=== PATIENT | female | born 1950 | race Caucasian/White ===

== ENCOUNTER 2018-02-27 10:05 | Observation (INO) ==
[~2018-02-27 10:05] MED LIST: Gelatin Size 100 Topical Foam ONE; Thrombin Topical Soln 5,000 UNIT Vial TOPICAL ONE; ceFAZolin 1 GM Premix Inj 2 GM/100 ML PIGGYBACK IV.SIG ONE
[2018-02-27] MEDS ORDERED: Chlorhexidine Gluconate 2% 1 Pack (2 Cloths) TOPICAL ONE (11:00)
[2018-02-27] MEDS ORDERED: Metoprolol Tartrate 25 MG Tablet PO ONE (11:00)
[2018-02-27] MEDS ORDERED: Sodium Chlor 0.9% Inj 500 ML IV.CONT ONE (11:00)
[2018-02-27] MEDS ORDERED: Chlorhexidine Gluconate 2% 1 Pack (2 Cloths) TOPICAL PRN (11:00)
[2018-02-27] MEDS ORDERED: Vancomycin Inj 1,000 MG in Sodium Chlor 0.9% Inj 250 ML IV.SIG SCH (12:00)
[2018-02-27] MEDS ORDERED: fentaNYL Citrate Inj 250 MCG/5 ML Ampul ONE (12:10)
[2018-02-27] MEDS ORDERED: Artificial Tears Opth Oint 3.5 GM Tube ONE (12:11)
[2018-02-27] MEDS ORDERED: Propofol Inj 500 MG/50 ML Vial ONE (14:23)
[2018-02-27] MEDS ORDERED: Bisacodyl 10 MG Supp RECTAL PRN (17:24)
--- NOTE | 2018-02-27 17:33 | P.OP ---
Preoperative Diagnosis: Cervical Disk Protusions with Spinal Stenosis Postoperative Diagnosis: Cervical Disk Protusions with Spinal Stenosis Date of procedure: 02/27/18 Procedure: C4-5. C5-6, C6-7 anterior cervical discectomy, interbody arthodhesis using PEEK cage filled with autologous bone graft, Simplicity plate and screws. Anesthesia: AMBERA Surgeon: Baldomero Moncada MD Electronic Scale Assembler And Tester: Jerrell Torrez Pathology: none sent Operation and Findings: INDICATIONS FOR THE PROCEDURE Ms Askew is a 67 year-old female who presented with intractable neck pain and clinical evidence of upper extremity poliradiculopathy. She was found to have multiple disk protusions causing significant spinal stenosis. She has failed maximum nonsurgical management including multiple modalities of treatment. A surgical decompression and arthrodhesis were indicated. The [id number] details of the procedure, indications, alternatives, risks and potential complications were fully discussed with the patient. The patient fully understood. All The questions were answered. No guarantees were given. The patient voiced requesting the procedure and provided informed consents. The patient was offered the alternative of delaying the procedure and continuing with nonsurgical management. DETAILS OF THE SURGICAL PROCEDURE After the induction of general anesthesia, endotracheal intubation was performed. A Padilla catheter, bilateral JUAN hose, and sequential compression devices were placed and kept throughout the procedure. Placement of electrodes for neurophysiological monitoring of the somatosensorial evoked potentials. motor evoked potentials, and EMG as well as laryngeal nerve monitoring was achieved. The patient was positioned supine on a Travis table with the head over a gel doughnut. All pressure points were carefully padded with eggcrate mattress. The eyes were tapped shut after ointment was applied by the anesthesiologist to prevent corneal abrasion. A Mohsen hugger was placed over the exposed lower body to maintain control of the core body temperature. The electrophysiological team placed the needles and electrodes in their proper location and baseline SSEP's and motor evoked potentials were registered prior and after positioning and endotracheal intubation. The anterior cervical region was prepped and draped in the usual sterile fashion. A localizing x-ray was performed with a C-arm. The surgical procedure was performed in several steps as follow: SURGICAL APPROACH A skin incision was made along the medial cervical crease with a #10 blade. The dissection was carried out through the platysma exposing the sternocleidomastoid muscle. The cervical spine was approached following the fascial layers of the neck just medial to the anterior border of the sternocleidomastoid and carotid sheath by a combination of sharp and dull dissection. The omohyoid muscle was identified and carefully dissected laterally and the deep cervical fascia was carefully opened. The longus colli muscles were retracted to each side of the midline. A marker was placed at the disc space C5-6 and a cross-table lateral x-ray performed with a C-arm. SURGICAL DECOMPRESSION In order to decompress the anterior surface of the spinal cord it was necessary to preform a microsurgical resection of the disk at C4-5. C5-6, C6-7. At this point in the procedure the operating microscope was draped in the usual sterile fashion and brought to the field. The rest of the surgical procedure was performed using microdissection technique with the exception of the closure. Under the operative microscopic, a self-retaining retractor was placed underneath the longus colli muscle. Anterior osteophite spurs werte carefully removed with the Leksell. The annulus at C4-5. C5-6, C6-7 were incised with a # 15 blade and microdiscectomy was then carefully carried out using angled curets and pituitary forceps. There were osteophitic/disk herniation complexes causing mass effect and compression of the dural sac and nerve roots. The posterior longitudinal ligament was then elevated with an angled curet and incised with a 15 bladed knife. A careful resection of the posterior longitudinal ligament was carried out using a thin footplate 2 mm Kerrison. A nerve hook was used to assess the epidural space behind the vertebral bodies C5, C6, and C7 in search for residual disk fragments. The margins of the posterior endplates at C4-5, C5- 6, and C6-7 were carefully drilled and undercut with a TPS drill under high magnification. The decompression was then carried out laterally, and a bilateral foraminotomy was performed with a 2mm thin foot Kerrison. Then the vertebral bodies above and below the disk space were undercut using a 2 mm thin foot Kerrison. The epidural space was the systematically assessed with a nerve hook in search for disk fragments. An excellent decompression was achieved in both, the dural sac and bilateral exiting nerve roots. The incision was then irrigated with a large amount of antibiotic solution INTERBODY ARTHRODHESIS In order to avoid collapse of the disk space which would result in bilateral foraminal stenosis, and to increase the chances of a successful fusion, it was necessary to place an interbody cage filled with autologous bone. At this point of the procedure, the superior and inferior endplates were then evenly decorticated with a TPS drill. The use of a drill in combination with a curette allowed me to systematically remove the cartilaginous endplates, exposing healthy bone for the interbody arthrodesis. Fourteen millimeters distraction pins were then placed at the vertebral bodies adjacent to the disk space, and gentle distraction was applied. The size of the interbody cage was then assessed using different size spacers, and a rasp was used to ensure no residual cartilage. A PEEK cage of the appropriate size was selected, and the interbody arthrodesis was then preformed by carefully impacting a PEEK cage filled with autologous bone graft to the disc spaces C4-5 and C5-6. An excellent position of the cage was achieved. This was was confirmed anatomically by feeling the space posterior to the implant and distance to the anterior surface of the dural sac. Radiological confirmation of the position was performed with a cross lateral xray performed with the C-arm. INTERNAL INSTRUMENTAL FIXATION Once that the interbody device was in an appropriate position, it was necessary to stabilize the spine with anterior instrumentation. Anterior instrumentation has demonstrated to increase the rate of fusion, acelerate the patient's recovery, and decrease the rate of failed interbody grafts. At this point of the procedure, the distance between the vertebral bodies was carefully measures, and a Simplicity plate was brought to the field and presented in front of the vertebral bodies C4 C5, C6, and C7. Plating Technician holes were then drilled using the TPS drill, and the plate was then secured to the spine using self-drilling, self-tapping screws. Initially, the inferior right screw was inserted, followed by placement of the contralateral upper screw. The remanding screws were sequentially placed in a contra-lateral fashion. A proper purchase was achieved with all screws and the position of the cage, plate and screws, and alignment of the spine was assessed anatomically by direct visualization, and radiologically by performing a cross lateral xray of the cervical spine with the C-arm. CLOSURE The incision was irrigated with several liters of antibiotic solution. Hemostasis was achieved with a bipolar. The screws were locked to prevent backing out. A 7 mm Travis-Tracy drain was left in the prevertebral space and externalized through a separate stab incision. The incision was then closed in layers. 3-0 Vicryl with interrupted sutures was used to close the platysma and subcutaneous tissue. The skin was closed with 4-0 running subcuticular Vicryl and glue was applied to the skin. The drain was secured with a 3-0 nylon. At the end of the procedure the sponge, needle and instrument counts were all correct. The estimated blood loss was less than 80 cc. No blood transfusion was given. No intraoperative complications occurred. The patient received prophylactic antibiotics. The patient was then extubated and transferred to the recovery room in stable condition.
[2018-02-27] MEDS: Sod Chloride 0.9% Inj 1,000 ML IV.CONT SCH (17:55)
[2018-02-27] MEDS ORDERED: Phenol 1.4% 180 ML Spray Bottle OROPHARYNG PRN (17:58)
[2018-02-27] MEDS ORDERED: fentaNYL Citrate Inj 100 MCG/2 ML Ampul ONE (17:58)
[2018-02-27] MEDS ORDERED: *morphine SULFATE 4 MG/ML PERIprocedure ONLY ONE ×2 (18:02→18:22)
[2018-02-27] MEDS ORDERED: HYDROmorphone PF Inj 0.5 MG/0.5 ML Syringe ONE (18:46)
--- NOTE | 2018-02-27 18:59 | XR ---
EXAM DATE: 02/27/2018 6:17 PM EST AGE/SEX: 67 years / Female INDICATIONS: C4-7 fusion. CLINICAL DATA: This is the patient's initial encounter. Patient reports that signs and symptoms have been present for 1 day and indicates a pain score of Nonresponsive. MEDICAL/SURGICAL HISTORY: Non-responsive. Non-responsive. COMPARISON: No prior exams available for comparison. FINDINGS: There is an anterior cervical fusion plate at the C4-C7 levels with intervening surgical material at the C4-C5, C5-C6 and C6-C7 disc levels. CONCLUSION: Good postsurgical appearance. Electronically signed by: Juan Ramon Knutson MD Board Certified Radiologist 02/27/2018 6:58 PM EST
[2018-02-27] MEDS: Senna/Docusate Sodium 8.6/50 MG Tablet PO SCH (20:01)
[2018-02-27] MEDS: Metoprolol Tartrate 50 MG Tablet PO SCH (20:02)
[2018-02-27] MEDS: Gabapentin 300 MG Capsule PO SCH (20:02)
[2018-02-27] MEDS: Morphine Sulfate Inj 2 MG/ML Vial IV.PUSH PRN ×2 (21:32→23:50)
[2018-02-27] MEDS: ceFAZolin 2 GM Premix Inj 2 GM/50 ML PIGGYBACK IV.SIG SCH (21:36)
[2018-02-28] MEDS: Sod Chloride 0.9% Inj 1,000 ML IV.CONT SCH ×2 (01:31→04:21)
[2018-02-28 04:56] LABS: Bilirubin,Urine Negative (Negative); Clarity,Urine Clear (Clear); Color,Urine Yellow (Yellw/Straw); Glucose,Urine (UA) Negative (Negative); Leukocyte Esterase,Urine Negative (Negative); Nitrite,Urine Negative (Negative); Specific Gravity,Urine 1.013 (1.002-1.035)
[2018-02-28] MEDS: Gabapentin 300 MG Capsule PO SCH (06:01)
[2018-02-28] MEDS: ceFAZolin 2 GM Premix Inj 2 GM/50 ML PIGGYBACK IV.SIG SCH (06:01)
[2018-02-28 06:22] VITALS: RESP 20
[2018-02-28] MEDS: Metoprolol Tartrate 50 MG Tablet PO SCH (08:45)
[2018-02-28] MEDS: Senna/Docusate Sodium 8.6/50 MG Tablet PO SCH (08:45)
[2018-02-28] MEDS: Sod Chloride 0.9% Inj 1,000 ML IV.SIG SCH ×2 (08:56→10:13)
[2018-02-28] MEDS ORDERED: [UNRECOGNIZED DRUG - OTHER] PO SCH (09:00)
[2018-02-28] MEDS ORDERED: APPLE CIDER VINEGAR PO SCH (09:00)
[2018-02-28] MEDS ORDERED: Triamterene/HCTZ 37.5 MG/25 MG Tablet PO SCH (09:00)
[2018-02-28] MEDS ORDERED: Pantoprazole Sodium 20 MG DR Tablet PO SCH (09:00)
[2018-02-28] MEDS ORDERED: Loratadine 10 MG Tablet PO SCH (09:00)
[2018-02-28] MEDS ORDERED: amLODIPine 10 MG Tablet PO SCH (09:00)
--- NOTE | 2018-02-28 10:21 | P.DS ---
Date of admission: 02/27/18 18:04 Primary care physician: Tremayne Elizalde DO Brief History from admission: Ms Askew is a 67 year-old female who presented with intractable neck pain and clinical evidence of upper extremity poliradiculopathy. She was found to have multiple disk protusions causing significant spinal stenosis. She has failed maximum nonsurgical management including multiple modalities of treatment. A surgical decompression and arthrodhesis were indicated. DS: Medications - Discharge Medications Prescriptions: hydrocodone-acetaminophen 1 tab PO Q4-6H PRN 7 Days #27 tab PRN Reason: Pain Scale 1 To 5 DS: Summary Hospital Course: Ms. Askew underwent a C4-5. C5-6, C6-7 anterior cervical discectomy, interbody arthodhesis using PEEK cage filled with autologous bone graft, Simplicity plate and screws for Cervical Disk Protusions with Spinal Stenosis on 02/24/18. Her surgery went well without complications. She will be discharged home in stable conditions. - Time Spent with Patient Total time spent providing and/or coordinating discharge services: Less than 30 minutes - Quality: VTE Deep Vein Thrombosis/Pulmonary Embolism Present on Admission: No Exam Vital signs: Vital Signs 02/27/18 11:30 02/27/18 17:45 02/27/18 18:00 Temperature 98.6 F 98.5 F Pulse Rate 68 103 H 101 H Respiratory Rate 16 15 16 Blood Pressure 125/59 L 146/67 H 147/68 H Pulse Oximetry 95 96 96 02/27/18 18:15 02/27/18 18:30 02/27/18 18:43 Temperature Pulse Rate 100 H 99 H Respiratory Rate 16 17 Blood Pressure 150/69 H 150/61 H Pulse Oximetry 95 95 95 02/27/18 18:45 02/27/18 20:00 02/27/18 20:30 Temperature 98.4 F 97.3 F L Pulse Rate 104 H 105 H Respiratory Rate 16 16 Blood Pressure 153/68 H 126/82 Pulse Oximetry 96 94 L 96 02/27/18 22:11 02/27/18 23:54 02/28/18 00:00 Temperature 97.0 F L Pulse Rate 93 H Respiratory Rate 18 18 18 Blood Pressure 133/61 Pulse Oximetry 93 L 02/28/18 02:28 02/28/18 04:00 Temperature 97.5 F L Pulse Rate 83 Respiratory Rate 19 20 Blood Pressure 135/62 Pulse Oximetry 93 L Intake & Output 02/27/18 02/28/18 02/28/18 18:59 06:59 18:59 Intake Total 1999 1950 / 1950 Output Total 500 / 500 2540 / 2540 Balance 1500 / 1500 -590 / -590 Weight 105.9 kg 110.3 kg Intake: IV 1450 / 1450 LR 1000 mL Inj 1,000 ML @ 30 0 / 0 mls/hr IV.CONT .Q24H ONE Rx#: [id number] NS Inj 1,000 ML @ 100 mls/hr IV 1000 / 1000 .CONT .Q10H JANNETTE Rx#:[id number] Vancomycin Inj 1,000 MG In NS 250 / 250 Inj 250 ML @ 250 mls/hr IV.SIG CARBON 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 C5-6, C6-7 anterior cervical discectomy, interbody arthodhesis using PEEK cage filled with autologous bone graft, Simplicity plate and screws Labs on day of discharge: Labs from last 24 hours 02/28/18 04:30 Urine Color Yellow Urine Clarity Clear Urine pH 5.0 Ur Specific [place] 1.013 Urine Protein Negative Urine Glucose (UA) Negative Urine Ketones Negative Urine Occult Blood Negative Urine Nitrate Negative Urine Bilirubin Negative Urine Urobilinogen Less than 2 Ur Leukocyte Esterase Negative Urine RBC 1 Urine WBC Less than 1 Micro UA Comment Culture not ind Ur Microscopic Review Not Reportable Urine Culture Comments Culture not ind - Impressions ITS Impressions Cervical Spine X-Ray 02/27/18 00:00 CONCLUSION: Good postsurgical appearance. Discharge Plan - Discharge Disposition Patient Disposition: 01 Discharge Home - Discharge Condition Condition: Stable - Discharge Order Discharge Orders: Discharge Order (Routine); Ordered 02/28/18 Ordered By: Marilyn Tinoco - Physicians Team Primary Care Provider: Tremayne Elizalde Attending Provider: Baldomero Moncada - Rxs /Orders / Referrals /Forms Prescriptions: New hydrocodone-acetaminophen 10-325 mg Tablet 1 tab PO Q4-6H PRN (Reason: Pain Scale 1 To 5) 7 Days Qty: 27 RF: 0 Continue amlodipine 10 mg Tablet 10 mg PO DAILY apple cider vinegar 500 mg Tablet 1 tab PO DAILY Ca Ejz-[id number]-M-Jttm-uoeeo-zef bor [TheraCal D2000] 250 mg calcium -500 unit Tablet 1 tab PO DAILY cranberry 500 mg Capsule 500 mg PO DAILY cyanocobalamin (vitamin B-12) [Vitamin B-12] 2,500 mcg Tablet, Sublingual 2,500 mcg SUBLINGUAL DAILY loratadine 10 mg Tablet 10 mg PO DAILY metoprolol tartrate 50 mg Tablet 1 tab PO BID lvfteglxjmwg-rfji-sdlbi acid [Centrum] 18-400 mg-mcg Tablet 1 tab PO DAILY omeprazole magnesium [Prilosec OTC] 20 mg Tablet,Delayed Release (Dr/Ec) 20 mg PO DAILY simvastatin 20 mg Tablet 20 mg PO QPM triamterene-hydrochlorothiazid 37.5-25 mg Tablet 1 tab PO DAILY vitamin E 400 unit Capsule 400 unit PO DAILY Referrals: Tremayne Elizalde DO [Primary Care Provider] - See Instructions - Discharge Instructions Patient Printed Instructions: Laminectomy (DC)
[2018-02-28 10:22] VITALS: BP 145/69; PULSE 85; TEMP 97.6; O2SAT 91
== END 2018-02-28 11:48 | disposition home or self-care (01) ==
LOC: HSDC 10:05 → HSDI 10:05 → N05 19:04
PROVIDERS: ADMIT Neurological Surgery; ATTEND Neurological Surgery